=== PATIENT | female | born 1980 | race Caucasian/White ===

== ENCOUNTER 2017-09-22 08:16 | Emergency (ER) | payer BC ==
[2017-09-22 08:37] VITALS: BP 125/74
--- NOTE | 2017-09-22 08:52 | UC ---
Skin Complaint HPI - HPI Summary HPI Summary: Pt c/o sudden onset of tender "abscesses" on abdomen that began ~ 3-5 days ago. "abscess" on RLQ has spontaneously open and is draining purulent drainage. Pt reports fever of 100.3 last evening. NO fever today. NO generalized malaise or chills - History of Current Complaint Chief Complaint: UCGeneralIllness Time Seen by Provider: 09/22/17 08:31 Stated Complaint: SKIN CONCERN - ABDOMEN Hx Obtained From: Patient Hx Last Menstrual Period: 08/27/17 ?: No Onset/Duration: Sudden Onset, Lasting Days, Still Present Skin Exposure Onset/Duration: Days Ago Timing: Constant Onset Severity: Mild Current Severity: Moderate Pain Intensity: 5 Location: Discrete Character: Pain, Redness, Raised, Painful Aggravating Factor(s): Touch Alleviating Factor(s): Nothing Associated Signs & Symptoms: Positive: Drainage, Tenderness Related History: Other: - son positive for MRSA. - Allergy/Home Medications Allergies/Adverse Reactions: Allergies Allergy/AdvReac Type Severity Reaction Status Date / Time No Known Allergies Allergy Verified 09/22/17 08:32 Home Medications: Home Medications Acetaminophen [Acetaminophen Extra Strength] 500 mg PO Q4H PRN 09/22/17 [ History Confirmed 09/22/17] Ibuprofen TAB* [Advil TAB*] 400 - 600 mg PO Q6H PRN 09/22/17 [History Confirmed 09/22/17] Review of Systems Constitutional: Negative Skin: Other Eyes: Negative ENT: Negative Respiratory: Negative Cardiovascular: Negative Gastrointestinal: Negative Genitourinary: Negative Motor: Negative Neurovascular: Negative Musculoskeletal: Negative Neurological: Negative Psychological: Negative Is Patient Immunocompromised?: No All Other Systems Reviewed And Are Negative: Yes PMH/Surg Hx/FS Hx/Imm Hx Previously Healthy: Yes - Surgical History Surgical History: None - Family History Known Family History: Positive: Cardiac Disease, Other - son, positive for MRSA - Social History Occupation: Employed Full-time Lives: With Family Alcohol Use: Occasionally Substance Use Type: None Smoking Status (MU): Never Smoked Tobacco Have You Smoked in the Last Year: No - Immunization History Most Recent Influenza Vaccination: DEC 2014 Physical Exam Triage Information Reviewed: Yes Appearance: Well-Appearing Vital Signs: Initial Vital Signs Temp 97.8 F 09/22/17 08:27 Pulse 104 09/22/17 08:27 Resp 16 09/22/17 08:27 BP 125/74 09/22/17 08:27 Pulse Ox 97 09/22/17 08:27 Vital Signs Reviewed: Yes Eye Exam: Normal ENT Exam: Normal Dental Exam: Normal Neck exam: Normal Respiratory: Positive: No respiratory distress Abdominal Exam: Other Abdomen Description: Positive: Other: - tenderness at abscess sites Musculoskeletal Exam: Normal Neurological Exam: Normal Psychological Exam: Normal Skin Exam: Other - LLQ and RLQ erythematous firm non fluctuant mass. RLQ darkened area in center. C/O tenderness with palpation of area Course/Dx - Differential Diagnoses - Skin Complaint Differential Diagnoses: Cellulitis, MRSA - Diagnoses Provider Diagnoses: abscesses RLQ and LUQ. possible MRSA Discharge - Sign-Out/Discharge Documenting (check all that apply): Patient Departure - Discharge Plan Condition: Stable Disposition: HOME Prescriptions: Mupirocin 2% OINT* [Bactroban 2 % Oint*] 1 applic TOPICAL DAILY #1 tube Sulfamethox/Trimethoprim DS* [Bactrim DS 800/160 TAB*] 1 tab PO Q12H #20 tab Patient Education Materials: Abscess (ED) Referrals: Lissy Hammer MD [Primary Care Provider] - If Needed - Billing Disposition and Condition Condition: STABLE Disposition: Home
== END 2017-09-22 09:05 | disposition home or self-care (01) ==
LOC: UCCORT 08:16
DX: L02.211 Cutaneous abscess of abdominal wall (principal)
CPT/HCPCS: 99212; G0463

== ENCOUNTER 2017-09-24 10:31 | Emergency (ER) | payer BC ==
[2017-09-24 11:29] VITALS: BP 121/79
--- NOTE | 2017-09-24 16:53 | ED ---
Skin Complaint - HPI Summary HPI Summary: Patient is a 37-year-old female who presents to the emergency department for reevaluation of infection to abdominal wall. Patient states she was seen in urgent care 2 days ago for the cellulitis to her left upper and right lower abdomen. Infection started about a week ago. Patient admits to chills. No vomiting. She has no significant past medical history. Patient states her son recently had a MRSA infection. She is on her third day of Bactrim. Patient states the redness is getting larger to infection to left upper abdomen. She states that infection is improving to right lower abdomen. Symptoms are mild in severity. Touching affected area makes symptoms worse. Rest makes symptoms better. - History of Current Complaint Chief Complaint: EDRashSkinAbscess Time Seen by Provider: 09/24/17 10:50 Stated Complaint: SORES/DX MRSA Hx Obtained From: Patient Hx Last Menstrual Period: 08/27/17 Pain Intensity: 0 Pain Scale Used: 0-10 Numeric - Allergy/Home Medications Allergies/Adverse Reactions: Allergies Allergy/AdvReac Type Severity Reaction Status Date / Time No Known Allergies Allergy Verified 09/22/17 08:32 PMH/Surg Hx/FS Hx/Imm Hx Previously Healthy: Yes Infectious Disease History: No Infectious Disease History: Denies: Traveled Outside the [place] in Last 30 Days - Family History Known Family History: Positive: Cardiac Disease, Other - son, positive for MRSA - Social History Occupation: Unemployed Lives: With Family Alcohol Use: Occasionally Substance Use Type: Reports: None Smoking Status (MU): Never Smoked Tobacco Have You Smoked in the Last Year: No Review of Systems Positive: Chills. Negative: Fever Positive: Other - Cellulitis to abdominal wall All Other Systems Reviewed And Are Negative: Yes Physical Exam Triage Information Reviewed: Yes Vital Signs On Initial Exam: Initial Vitals Temp Pulse Resp BP Pulse Ox 97.6 F 122 16 131/92 98 09/24/17 10:33 09/24/17 10:33 09/24/17 10:33 09/24/17 10:33 09/24/17 10:33 Vital Signs Reviewed: Yes Appearance: Positive: Well-Appearing - Pt. sitting in chair in NAD. Skin: Positive: Warm, Dry, Other - There is a roughly 10cm area of induration noted to the left upper abdominal wall with mild surrounding erythema. No fluctuance or drainage. Healing small draining wound to the right lower abd. Head/Face: Positive: Normal Head/Face Inspection Eyes: Positive: Normal Neck: Positive: Supple Cardiovascular: Positive: Normal Neurological: Positive: Normal, CN Intact II-III Psychiatric: Positive: Affect/Mood Appropriate Diagnostics - Vital Signs Vital Signs Temp Pulse Resp BP Pulse Ox 09/24/17 11:26 99.2 F 105 18 121/79 96 09/24/17 10:33 97.6 F 122 16 131/92 98 - Laboratory Lab Statement: Any lab studies that have been ordered have been reviewed, and results considered in the medical decision making process. Course/Dx - Course Course Of Treatment: Patient presenting for evaluation of ongoing infection. She is afebrile. There is no drainable abscess on exam. Patient is well- appearing and nontoxic. Will add Keflex 4 times a day and have patient continue Bactrim. Advised to continue warm compresses. Tylenol or Motrin for discomfort as directed. To follow-up with PCP for wound check in 2-3 days. We' ll return to the ER sooner for increased redness, swelling, fever, vomiting. Patient understands and agrees with plan. - Differential Diagnoses - Skin Complaint Differential Diagnoses: Abscess, Cellulitis - Diagnoses Provider Diagnoses: Cellulitis Discharge - Sign-Out/Discharge Documenting (check all that apply): Patient Departure - Discharge Plan Condition: Good Disposition: HOME Prescriptions: Cephalexin CAP* [Keflex CAP*] 500 mg PO QID #40 cap Patient Education Materials: Cellulitis (ED) Referrals: Lissy Hammer MD [Primary Care Provider] - Additional Instructions: Schedule a wound check with your PCP in 2-3 days Continue bactrim and start keflex today as directed Continue warm compresses Return to ER for high fever, increased redness, vomiting or if concerned - Billing Disposition and Condition Condition: GOOD Disposition: Home
== END 2017-09-24 11:26 | disposition home or self-care (01) ==
LOC: ED 10:31
DX: L03.311 Cellulitis of abdominal wall (principal)
CPT/HCPCS: 99281

== ENCOUNTER 2018-01-04 07:34 | Emergency (ER) | payer BC ==
[2018-01-04 07:56] VITALS: BP 132/83
--- NOTE | 2018-01-04 08:13 | UC ---
Throat Pain/Nasal Darrin HPI - HPI Summary HPI Summary: Pt presents with c/o ST and fever X 2 days. - History of Current Complaint Chief Complaint: UCRespiratory Stated Complaint: SORE THROAT Time Seen by Provider: 01/04/18 07:47 Hx Obtained From: Patient Hx Last Menstrual Period: 12/15/17 ?: No Onset/Duration: Sudden Onset, Lasting Days, Still Present Severity: Moderate Pain Intensity: 8 Cough: None Associated Signs & Symptoms: Positive: Dysphagia, Fever - Epiglottits Risk Factors Epiglottis Risk Factors: Sudden Onset - Allergies/Home Medications Allergies/Adverse Reactions: Allergies Allergy/AdvReac Type Severity Reaction Status Date / Time No Known Allergies Allergy Verified 01/04/18 07:46 Home Medications: Home Medications Ascorbic Acid TAB* [Vitamin C TAB*] 500 mg PO DAILY 01/04/18 [History Confirmed 01/04/18] PMH/Surg Hx/FS Hx/Imm Hx Previously Healthy: Yes - Surgical History Surgical History: None - Family History Known Family History: Positive: Cardiac Disease, Other - son, positive for MRSA - Social History Occupation: Employed Full-time Lives: With Family Alcohol Use: Occasionally Substance Use Type: None Smoking Status (MU): Never Smoked Tobacco Have You Smoked in the Last Year: No - Immunization History Most Recent Influenza Vaccination: DEC 2014 Vaccination Up to Date: Yes Review of Systems Constitutional: Fever, Chills, Fatigue Skin: Negative Eyes: Negative ENT: Sore Throat Respiratory: Negative Cardiovascular: Negative Gastrointestinal: Negative Genitourinary: Negative Motor: Negative Neurovascular: Negative Musculoskeletal: Myalgia Neurological: Headache Psychological: Negative Is Patient Immunocompromised?: No All Other Systems Reviewed And Are Negative: Yes Physical Exam Triage Information Reviewed: Yes Appearance: Ill-Appearing Vital Signs: Initial Vital Signs Temp 98.2 F 01/04/18 07:49 Pulse 119 01/04/18 07:49 Resp 16 01/04/18 07:49 BP 132/83 01/04/18 07:49 Pulse Ox 98 01/04/18 07:49 Vital Signs Reviewed: Yes Eye Exam: Normal ENT: Positive: Pharyngeal erythema, Tonsillar swelling Dental Exam: Normal Neck: Positive: Enlarged Nodes @ - submaxillary Respiratory Exam: Normal Cardiovascular Exam: Normal Musculoskeletal Exam: Normal Neurological Exam: Normal Psychological Exam: Normal Skin Exam: Normal Diagnostics - Laboratory Diagnostic Studies Completed/Ordered: rapid strep: positive Throat Pain/Nasal Course/Dx - Differential Dx/Diagnosis Differential Diagnosis/HQI/PQRI: Influenza, Pharyngitis, Tonsillitis Provider Diagnoses: strep throat Discharge - Sign-Out/Discharge Documenting (check all that apply): Patient Departure All imaging exams completed and their final reports reviewed: No Studies - Discharge Plan Condition: Stable Disposition: HOME Prescriptions: Penicillin VK 500 MG TAB(NF) [Penicillin VK 500 mg Tab] 500 mg PO Q6H #40 tab Patient Education Materials: Strep Throat (ED) Referrals: Lissy Hammer MD [Primary Care Provider] - If Needed - Billing Disposition and Condition Condition: STABLE Disposition: Home
== END 2018-01-04 08:24 | disposition home or self-care (01) ==
LOC: UCCORT 07:34
DX: J02.0 Streptococcal pharyngitis (principal)
CPT/HCPCS: 87651; 99212; G0463

== ENCOUNTER 2018-02-23 12:19 | Emergency (ER) | payer BC ==
[2018-02-23 13:22] VITALS: BP 128/81
--- NOTE | 2018-02-23 13:28 | UC ---
Throat Pain/Nasal Darrin HPI - HPI Summary HPI Summary: Per nurses triage: FEVER, TMAX 102, AND SORE THROAT LAST NIGHT. TOOK ADVIL COLD SINUS LAST NIGHT W/ NO PAIN RELIEF. SINUS PAIN AND NASAL CONGESTION X5 DAYS. - History of Current Complaint Chief Complaint: UCRespiratory Stated Complaint: FEVER,SORE THROAT Time Seen by Provider: 02/23/18 13:16 Hx Obtained From: Patient Hx Last Menstrual Period: 02/05/18 ?: No Onset/Duration: Sudden Onset, Lasting Days Severity: Severe Pain Intensity: 6 Associated Signs & Symptoms: Positive: Dysphagia - Allergies/Home Medications Allergies/Adverse Reactions: Allergies Allergy/AdvReac Type Severity Reaction Status Date / Time No Known Allergies Allergy Verified 02/23/18 13:19 PMH/Surg Hx/FS Hx/Imm Hx Previously Healthy: Yes - Surgical History Surgical History: None - Family History Known Family History: Positive: Cardiac Disease, Other - son, positive for MRSA - Social History Alcohol Use: Occasionally Substance Use Type: None Smoking Status (MU): Never Smoked Tobacco Have You Smoked in the Last Year: No - Immunization History Most Recent Influenza Vaccination: DEC 2014 Vaccination Up to Date: Yes Review of Systems All Other Systems Reviewed And Are Negative: Yes Constitutional: Positive: Fever Eyes: Positive: Negative ENT: Positive: Sore Throat, Ear Ache Respiratory: Positive: Cough Cardiovascular: Positive: Negative Gastrointestinal: Positive: Negative Genitourinary: Positive: Negative Motor: Positive: Negative Neurovascular: Positive: Negative Musculoskeletal: Positive: Negative Neurological: Positive: Negative Psychological: Positive: Negative Is Patient Immunocompromised?: No Physical Exam Triage Information Reviewed: Yes Appearance: Ill-Appearing, Pain Distress Vital Signs: Initial Vital Signs Temp 98 F 02/23/18 13:19 Pulse 109 02/23/18 13:19 Resp 16 02/23/18 13:19 BP 128/81 02/23/18 13:19 Pulse Ox 100 02/23/18 13:19 Vital Signs Reviewed: Yes Eye Exam: Normal Eyes: Positive: Conjunctiva Clear ENT: Positive: Pharyngeal erythema - with PND, Nasal congestion, TM bulging, Tonsillar swelling, Tonsillar exudate Neck: Positive: Supple, Nontender, No Lymphadenopathy Respiratory Exam: Normal Respiratory: Positive: Chest non-tender, Lungs clear, Normal breath sounds Cardiovascular: Positive: No Murmur, Pulses Normal, Tachycardia Abdominal Exam: Normal Abdomen Description: Positive: Nontender, No Organomegaly, Soft Bowel Sounds: Positive: Present Musculoskeletal Exam: Normal Neurological Exam: Normal Psychological Exam: Normal Skin Exam: Normal Throat Pain/Nasal Course/Dx - Course Course Of Treatment: hx obtained, exam performed ,meds reviewed, rapid strep obtained - Differential Dx/Diagnosis Differential Diagnosis/HQI/PQRI: Otitis Media, Pharyngitis, Sinusitis, URI Provider Diagnosis: Pharyngitis Discharge - Sign-Out/Discharge Documenting (check all that apply): Patient Departure All imaging exams completed and their final reports reviewed: No Studies - Discharge Plan Condition: Stable Disposition: HOME Patient Education Materials: Pharyngitis (ED) Referrals: Lissy Hammer MD [Primary Care Provider] - Additional Instructions: 1. Continue with increased fluids, salt water gargles. 2. Take the medication as prescribed. 3. Ibuprofen and tylenol as needed for pain and fever. - Billing Disposition and Condition Condition: STABLE Disposition: Home
== END 2018-02-23 13:46 | disposition home or self-care (01) ==
LOC: UCCORT 12:19
DX: J02.9 Acute pharyngitis, unspecified (principal)
CPT/HCPCS: 87651; 99212; G0463

== ENCOUNTER 2019-02-04 16:12 | Emergency (ER) | payer BC ==
--- OUTSIDE RECORDS SUMMARY | 2019-02-04 16:21 | XMS REPORT | Continuity of Care Document ---
:1980 External Reference #:[id number] Author Name Rachel Whitney CNM Address [address] [place] [id number] Care Team Providers Name Role Phone Jaquelin Lissy Care Team Information Cash Applications Specialist [phone] Problems Active Problems Provider Date External hemorrhoids without complication Michelle Martinez NP Onset: 01/29/2012 Social History Type Date Description Comments Sex Unknown Tobacco Use Start: Unknown Patient has never smoked Smoking Status Reviewed: 12/10/18 Patient has never smoked Allergies, Adverse Reactions, Alerts Description No Known Drug Allergies Medications Active Medications SIG Qnty Indications Ordering Provider Date Multivitamins Unknown Lisinopril 10mg Unknown Tablets Medications Administered in Office Medication SIG Qnty Indications Ordering Provider Date PT SCRN Tbco Id as Non User Rachel Whitney CNM 12/10/2018 Injection No PT Tbco SCRN RNG DOMINIC Ayon 04/04/2018 Injection PT SCRN Tbco Id as Non User DOMINIC Ayon 04/04/2018 Injection Immunizations Description No Information Available Vital Signs Date Vital Result Comment 12/10/2018 1:56pm BP Systolic 114 mmHg BP Diastolic 7 mmHg Height 60.75 inches 5'0.75" Weight 219.00 lb BMI (Body Mass Index) 41.7 kg/m2 Last Menstrual Period [id number] 4 Parity 2 04/04/2018 8:52am BP Systolic 132 mmHg BP Diastolic 88 mmHg Height 60.75 inches 5'0.75" Weight 234.00 lb BMI (Body Mass Index) 44.6 kg/m2 Last Menstrual Period [id number] 4 Parity 2 Results Description No Information Available Procedures Description No Information Available Medical Devices Description No Information Available Encounters Type Date Location Provider Dx Diagnosis Office Visit 12/10/2018 [facility] Rachel Whitney CNM Z01.419 Encntr for cash applications specialist exam 2:15p (general) (routine) w/o abn findings Assessments Date Code Description Provider 12/10/2018 Z01.419 Encounter for gynecological examination Rachel Whitney CNM (general) (routine) without abnormal findings Plan of Treatment 04/04/2018 - Justine Perez, [id number] Encounter for screening for malignant neoplasm of [id number] Encounter for gynecological examination (general) ( routine)Comments:Discussed with patient importance of Breast self exam. Discussed importance of well balanced diet with all food groups Discussed advantages and need for frequent exercise (3-4 times per week) calcium 1200 mg a day and Vit D3 1000IU a dayFollow up:r/v annual r/v 3 months BP [id number] Abnormal uterine and vaginal bleeding, unspecifiedNew Medication:Ignacia -Be 0.35 mg - 1 by mouth every day Functional Status Description No Information Available Mental Status Description No Information Available Referrals Description No Information Available
[2019-02-04 16:27] VITALS: BP 128/89
--- NOTE | 2019-02-04 17:12 | UC ---
Hand/Wrist HPI - HPI Summary HPI Summary: 38-year-old female comes in with a chief complaint of left middle finger pain and swelling. Patient woke on January 01, 2019 with her left middle finger swollen and painful. The primary area of pain and swelling is on the radial aspect of the PIP. No known injury. Does hurt more with movement and palpation. Cannot fully extend the finger. Flexion also is slightly limited. No other joint pain feels well otherwise. - History Of Current Complaint Chief Complaint: UCUpperExtremity Stated Complaint: RIGHT MIDDLE FINGER SWELLING/PAIN Time Seen by Provider: 02/04/19 16:35 Hx Last Menstrual Period: Jan 16 Pain Intensity: 4 - Allergies/Home Medications Allergies/Adverse Reactions: Allergies Allergy/AdvReac Type Severity Reaction Status Date / Time No Known Allergies Allergy Verified 02/04/19 16:27 Home Medications: Home Medications Lisinopril TAB* [Prinivil TAB*] 10 mg PO DAILY 02/04/19 [History Confirmed 02/04] Multivitamin [Multivitamins] 1 cap PO 02/04/19 [History] PMH/Surg Hx/FS Hx/Imm Hx Previously Healthy: Yes Cardiovascular History: Hypertension - Surgical History Surgical History: None - Family History Known Family History: Positive: Cardiac Disease, Other - son, positive for MRSA - Social History Alcohol Use: Rare Substance Use Type: None Smoking Status (MU): Never Smoked Tobacco Have You Smoked in the Last Year: No - Immunization History Most Recent Influenza Vaccination: DEC 2014 Vaccination Up to Date: Yes Review of Systems All Other Systems Reviewed And Are Negative: Yes Constitutional: Positive: Negative Skin: Positive: Negative Eyes: Positive: Negative ENT: Positive: Negative Respiratory: Positive: Negative Cardiovascular: Positive: Negative Gastrointestinal: Positive: Negative Motor: Positive: Other - SEE HPI Neurovascular: Positive: Negative Musculoskeletal: Positive: Other: - SEE HPI Neurological: Positive: Negative Psychological: Positive: Negative Is Patient Immunocompromised?: No Physical Exam Triage Information Reviewed: Yes Appearance: Well-Appearing, No Pain Distress, Well-Nourished Vital Signs: Initial Vital Signs Temp 98.9 F 02/04/19 16:21 Pulse 87 02/04/19 16:21 Resp 18 02/04/19 16:21 BP 128/89 02/04/19 16:21 Pulse Ox 99 02/04/19 16:21 Vital Signs Reviewed: Yes Eye Exam: Normal Eyes: Positive: Conjunctiva Clear Neck: Positive: Supple Respiratory: Positive: No respiratory distress Musculoskeletal: Positive: Other: - Left middle finger has swelling primarily at the PIP with tenderness and swelling on the radial aspect of the PIP. Extension and flexion are slightly limited. Normal capillary refill normal strength. No erythema. Neurological: Positive: Alert Psychological: Positive: Age Appropriate Behavior Skin Exam: Normal Hand/Wrist Course/Dx - Course Course Of Treatment: Auto Body Mechanic Apprentice: Demetrio Murcia C, ([id number]) Cargo Operations Agent: MAMADOU (MAMADOU) Report Date: 02/04/2019 17:10:00 Report Status: Final Start of Report Content ===== Patient Name: EVELYN CAPMA Medical Record#: [id number] Ordering Physician: Jarek Nova MD Acct.#: [id number] : 1980 Age: 38 Sex: F [facility] : [facility] Exam Date: 02/04/19 163 ADM Status: REG ER Order Information: FINGER RIGHT MIDDLE Accession Number: [id number] CPT: 65110 Indication: Pain and swelling tip of RIGHT third finger for over a month. Pain with flexion. Comparison: No relevant prior exams available on the [facility] PACS for comparison. Technique: 3 views RIGHT third finger REPORT AND IMPRESSION: #. Negative for acute fracture or articular malalignment. #. Suggestion of a healed fracture at the diaphysis of the third metacarpal. #. Preserved joint spaces. #. No focal osseous lesions or periosteal reaction. #. Mild fusiform soft tissue swelling. __ 02/04/191705 Dictated By: Demetrio Murcia MD Dictated Date/Time: 02/04/191703 Transcribed Date/Time: 02/04/191703 Copy to: CC:Lissy Hammer MD; Jarek Nova MD Imaging - [facility] Imaging - [facility] Imaging - [facility] [address] [place], [place] [id number] [place] [id number] [place] [id number] ph [phone] ph ) ph [phone]) End of Report Content === I discussed the x-rays with the patient. Patient has no pain in the metacarpal. Plan will be to follow-up with orthopedic hand. - Differential Dx/Diagnosis Provider Diagnosis: Pain of right middle finger Discharge ED - Sign-Out/Discharge Documenting (check all that apply): Patient Departure All imaging exams completed and their final reports reviewed: Yes - Discharge Plan Condition: Stable Disposition: HOME Patient Education Materials: Finger Sprain (ED), Swollen Joint (ED) Referrals: Lissy Hammer MD [Primary Care Provider] - Patricia Vazquez MD [Medical Doctor] - Korey Heller MD [Medical Doctor] - Additional Instructions: FOLLOW UP WITH THE ORTHOPEDIC HAND SPECIALIST. GET REEVALUATED SOONER IF NOT IMPROVING OR WORSE OR ANY QUESTIONS OR CONCERNS. - Billing Disposition and Condition Condition: STABLE Disposition: Home
== END 2019-02-04 17:32 | disposition home or self-care (01) ==
LOC: UCCORT 16:12
DX: M79.644 Pain in right finger(s) (principal); M79.89 Other specified soft tissue disorders; I10 Essential (primary) hypertension; Z79.899 Other long term (current) drug therapy
CPT/HCPCS: 73140; 99211; G0463

== ENCOUNTER 2019-03-27 07:43 | Day surgery (SDC) | payer BC ==
[~2019-03-27 07:43] MED LIST: Buffered Lidocaine 1% SYRIN* 1 ML/SYRINGE INTRADERM ONE; Famotidine IV* 10 MG/ML 2 ML (20 mg) IV ONE; Famotidine IV* 10 MG/ML 2 ML (20 mg) ONE; Lactated Ringers 1000 ML Bag* 1,000 ML IV SCH; Lidocaine 1% INJ* 10 MG/ML 30 ML SDV ONE
[2019-03-27] MEDS ORDERED: Famotidine IV* 10 MG/ML 2 ML (20 mg) ONE (08:17)
[2019-03-27] MEDS ORDERED: Midazolam* 1 MG/ML 5 ML VIAL (5 MG) ONE (08:35)
[2019-03-27] MEDS ORDERED: Ketorolac INJ* 30 MG/ML 1 ML VIAL IV PRN (09:07)
[2019-03-27] MEDS ORDERED: Naloxone* 0.4 MG/ML 1 ML VIAL IV PRN (09:07)
[2019-03-27] MEDS ORDERED: Ondansetron INJ* 2 MG/ML VIAL ONE (09:14)
[2019-03-27] MEDS ORDERED: Propofol* 10 MG/ML 20 ML BTL ONE ×2 (09:14→09:36)
[2019-03-27] MEDS ORDERED: Lidocaine 2% PF * 5 ML VIAL ONE (09:15)
[2019-03-27] MEDS ORDERED: Ketorolac INJ* 30 MG/ML 1 ML VIAL ONE (09:52)
[2019-03-27 10:16] VITALS: BP 112/86
--- NOTE | 2019-03-28 00:14 | OP ---
DATE OF OPERATION: 03/27/19 [facility] DATE OF : 84 SURGEON: Patricia Vazquez MD SUPERVISORY TRAINING SPECIALIST: STEPHANIE Chacon ANESTHESIA: Local MAC. PRE-OP DIAGNOSIS: Right long finger mass. POST-OP DIAGNOSIS: Right long finger mass. OPERATIVE PROCEDURE: Removal of right long finger mass. ESTIMATED BLOOD LOSS: Zero. TOURNIQUET TIME: About 15 minutes. INDICATIONS FOR PROCEDURE: Soraida is a 39-year-old female who has a painful mass on the radial aspect of her right long finger PIP joint. She presents for excision. DESCRIPTION OF PROCEDURE: The patient was brought to the operating room, was given a sedation anesthetic and a digital block with 10 cc of 1% plain lidocaine. The skin of her right upper extremity was prepped and draped in the usual sterile fashion. The finger was exsanguinated with a Tourni-Cot, which was left in place during the procedure. A longitudinal incision was made centered over the mass and we dissected bluntly through the subcutaneous tissue. There was a cystic mass overlying the collateral ligament and it was also emanating from underneath the ligament. It was removed and a small portion of the joint capsule was excised as well. Additionally, there was a firm mass at the insertion of the collateral ligament. The ligament was incised longitudinally over a short portion of its length and the underlying mass removed with a rongeur. All of this was sent for pathology. The wound was irrigated and the skin edges reapproximated with 4-0 nylon suture. The wound was dressed with Xeroform, 4x4, Webril, and Coban. The patient tolerated the procedure well and was brought to the recovery room in good condition. [id number]/[facility] #: [id number] [facility]ENTER[facility]van
== END 2019-03-27 10:30 | disposition home or self-care (01) ==
LOC: OREAST 07:43
PROVIDERS: ATTEND Orthopaedic Surgery
DX: R22.31 Localized swelling, mass and lump, right upper limb (principal); I10 Essential (primary) hypertension
CPT/HCPCS: 81025; 88305; J1885; J2250; J2405; J2704